=== PATIENT | female | born 1960 | race Caucasian/White ===

== ENCOUNTER 2019-06-19 07:41 | Observation (INO) | payer BC ==
[2019-06-19] VITALS (9 sets, daily range): BP systolic 111–135; BP diastolic 41–70
[~2019-06-19] VITALS: Ht 167.6 cm; Wt 212.0 kg
[~2019-06-19 07:41] MED LIST: BUPIVACAINE-EPI 0.25%-1:200000 MPF 30 ML VIAL. INJ ONE; CLINDAMYCIN 900MG PREMIX 50 ML IV PRN; ESTROGENS, CONJ VAGINAL CREAM 30GM TUBE. ONE; HYDROmorphone 2 MG/ML VIAL IV PRN; IV RINGERS,LACTATED 1000ML 1,000 ML IV SCH; LIDOCAINE 1% PF 2 ML VIAL. ID PRN; MORPHINE SULFATE 2 MG/ML VIAL. IV PRN; ONDANSETRON PF 4 MG/2 ML VIAL. IV PRN; PROCHLORPERAZINE 10 MG/2 ML VIAL. IV PRN
[2019-06-19] MEDS ORDERED: POTA10TA6 PO (08:23)
[2019-06-19] MEDS ORDERED: HYDR-2145 PO (08:23)
[2019-06-19] MEDS ORDERED: LEVO137T3 PO (08:23)
[2019-06-19] MEDS ORDERED: TRAM-48 PO (08:23)
[2019-06-19] MEDS ORDERED: MELO15TA6 PO (08:23)
[2019-06-19] MEDS ORDERED: GABA600T7 PO (08:23)
[2019-06-19] MEDS ORDERED: ROPI3TAB PO (08:23)
[2019-06-19] MEDS ORDERED: MIDAZOLAM HCL/PF 2 MG/2 ML VIAL. ONE (09:19)
[2019-06-19] MEDS ORDERED: fentaNYL PF VIAL 250 MCG/5 ML VIAL ONE (09:19)
[2019-06-19] MEDS ORDERED: DEXAMETHASONE SOD PHOS 4 MG/ML VIAL ONE (09:20)
[2019-06-19] MEDS ORDERED: ONDANSETRON PF 4 MG/2 ML VIAL. ONE (09:20)
[2019-06-19] MEDS ORDERED: PROPOFOL 20 ML IV ONE (09:20)
[2019-06-19] MEDS ORDERED: LIDOCAINE 2% PF 5 ML VIAL. ONE (09:20)
[2019-06-19 09:42] LABS: BASO # 0.1 x10^3/uL (0.0-0.2); BASO % 1 % (0-3); EOS % 0 % (0-3); HEMATOCRIT 37.5 % (36.0-47.0); HEMOGLOBIN 12.8 g/dL (12.0-15.5); LYMPH # 1.5 x10^3/uL (1.0-4.8); LYMPH % 13 % (24-48); MEAN CORPUSCULAR HEMOGLOBIN 32 pg (25-35); MEAN CORPUSCULAR HGB CONC 34 g/dL (31-37); MEAN CORPUSCULAR VOLUME 95 fL (79-100); MONO # 0.7 x10^3/uL (0.0-1.1); MONO % 7 % (0-9); NEUT # 8.6 x10^3/uL (1.8-7.7); NEUT % 79 % (31-73); PLATELET COUNT 360 x10^3/uL (140-400); RED BLOOD COUNT 3.95 x10^6/uL (3.50-5.40); RED CELL DISTRIBUTION WIDTH 14.2 % (11.5-14.5); WHITE BLOOD COUNT 10.9 x10^3/uL (4.0-11.0)
[2019-06-19] MEDS ORDERED: 0.9 % SODIUM CHLORIDE 20 ML VIAL. IJ ONE ×2 (10:04)
[2019-06-19] MEDS ORDERED: SEVOFLURANE 61 TO 120 MINUTES. IH ONE (11:13)
[2019-06-19] MEDS ORDERED: fentaNYL PF VIAL 100 MCG/2 ML VIAL ONE ×2 (11:30→12:02)
--- NOTE | 2019-06-19 11:32 | PDOC ---
BRIEF OPERATIVE NOTE Date: Jun 19, 2019 Pre-Op Diagnosis cystocele and rectocele Post-Op Diagnosis same with much larger rectocele Procedure Performed anterior and posterior repairs Surgeon Dr. Sonya Muñoz Anesthesiologist Dr. Salinas Anesthesia Type: General Blood Loss 15cc IV Fluid see anesthesia records Urine Output clear via wolf Specimens Obtained anterior and posterior vaginal mucosa Findings 1-2 cystocele, 2-3 degree rectocele with thinning perineal body Complications none Operative Note [id number] SONYA MUÑOZ MD Jun 19, 2019 11:32
[2019-06-19] MEDS: fentaNYL PF VIAL 100 MCG/2 ML VIAL IV PRN ×4 (11:40→12:06)
[2019-06-19] MEDS ORDERED: diphenhydrAMINE HCL 25 MG CAPSULE PO PRN ×2 (11:45)
[2019-06-19] MEDS ORDERED: ZOLPIDEM 5 MG TABLET. PO PRN (11:45)
[2019-06-19] MEDS ORDERED: MAG HYDROX/ALUMINUM HYD/SIMETH 30 ML ORAL.SUSP PO PRN ×2 (11:45)
[2019-06-19] MEDS ORDERED: LACTULOSE 20 GM/30 ML SOLUTION. PO PRN (11:45)
[2019-06-19] MEDS ORDERED: MAGNESIUM HYDROXIDE 2,400 MG/30 ML ORAL.SUSP. PO PRN (11:45)
[2019-06-19] MEDS ORDERED: 0.9 % SODIUM CHLORIDE 10 ML DISP.SYRIN. IV PRN ×2 (11:45)
[2019-06-19] MEDS ORDERED: HYDROcodone/APAP 5/325MG 1 TAB TABLET PO PRN ×2 (11:45)
[2019-06-19] MEDS ORDERED: SIMETHICONE 80 MG TAB.CHEW PO PRN ×2 (11:45)
[2019-06-19] MEDS ORDERED: CALCIUM CARBONATE 500 MG TAB.CHEW PO PRN ×2 (11:45)
[2019-06-19] MEDS ORDERED: NALOXONE 0.4 MG/ML VIAL. IV PRN ×2 (11:45)
[2019-06-19] MEDS ORDERED: diphenhydrAMINE 50 MG/ML VIAL IV PRN ×2 (11:45)
--- NOTE | 2019-06-19 12:01 | OP ---
DATE OF SURGERY: 06/19/2019 PREOPERATIVE DIAGNOSES: Symptomatic cystocele and rectocele. She had a second degree cystocele with a second and third degree rectocele present with thinning vaginal mucosa. PROCEDURE: Anterior and posterior colporrhaphy with perineoplasty. SURGEON: Drake Muñoz MD DIE DRAWING CHECKER: OR personnel. ANESTHESIOLOGIST: Dr. Salinas. ANESTHESIA: General. BLOOD LOSS: 15 mL. URINE OUTPUT: Clear via Hathaway catheter. SPECIMEN REMOVED: I am not even honestly sure they sent it. There was anterior and posterior vaginal mucosa tiny bit that was trimmed. COMPLICATIONS: None. DESCRIPTION OF PROCEDURE: This patient was taken to the operating room where general anesthesia was placed. The patient was placed in dorsal lithotomy position in [facility]. The patient's vagina was prepped and draped in the normal sterile fashion and a Hathaway catheter had been inserted under sterile technique. Upon my arrival, a timeout was performed. Once everyone agreed, a weighted speculum was placed in the patient's vagina and 2 long Allises were placed at the vaginal cuff. A solution of 3 parts injectable saline to 1 part 25% Marcaine with epinephrine was used to inject 20 mL anteriorly and I believe 30 mL posteriorly. There was 80 mL dilute solution used and that was posteriorly and on the perineal body on that, I believe with 3 parts injectable saline to 1 part local and 20 with anterior. A small #15 blade knife was used to make a small vertical incision there. Allis clamps were placed on either side and then the Metzenbaum scissors were used to open it up to approximately 1 cm below the urethra. It was a smaller defect, it was opened up, 3 or 4 interrupted 2-0 Vicryl sutures were placed and then tied to reduce it and very minimal tissue was trimmed, but it was closed in a running locked fashion from top to bottom. Then, the posterior repair, the weighted speculum was removed. Kochers were placed at 4 o' clock and 7 o'clock, more of that dilute solution of 3 parts injectable saline to 1 part local was injected in the posterior defect in the perineal body. A knife was used to cut a michele shaped wedge out of the perineal body and inside the vaginal introitus just inside the opening. It was cut off and then Metzenbaum scissors were used to open up this defect as well. It was much larger. The Metzenbaum scissors were used to sharply dissect the vaginal mucosa away from the defect and an open Ray-Jer 4 x 4 was used to gently push it up and out of the way. This was done anteriorly as well. Then, 2-0 Vicryl sutures were placed, then the excess mucosa was trimmed and it was closed. Allis clamps were placed along the way and starting on the patient's right side sharply and bluntly dissecting the vaginal mucosa away from the posterior defect. This was done on the left side as well. Once it was reduced significantly, 6 or 8 interrupted 2-0 Vicryl sutures were placed and tagged and went back and tied them in order and then using the back end of pickups to bluntly just push down the defect and bring it together. Excess mucosa was trimmed on both sides posteriorly and it was also closed and reduced. Once this was done, it came down to the vaginal introitus opening. It was kind of tucked under. The perineal body was reapproximated and then it was subacute on the perineal body and taken back into the vagina to close much like an episiotomy repair. At the end, it was all examined. All the incision sites were hemostatic and dry. Premarin cream was placed over the suture lines above and below and the procedure was ended. The Hathaway was removed. She was cleaned up. She was awakened from anesthesia and brought to recovery room in stable condition. DRAKE MUÑOZ MD DR: CARLOZ/sarwat JOB#: [id number] / [id number]
--- NOTE | 2019-06-19 12:50 | NUR ---
Rec'd from PACU per bed, alert/oriented, states discomfort level 5/10, IVF infusing into left dorsal hand, bilateral SCD in place for DVT prevention, oriented to surroundings, family members at bedside, see admission, call light within reach, bed rails up x 2
[2019-06-19] MEDS ORDERED: GABAPENTIN 300 MG CAPSULE. PO SCH (14:00)
--- NOTE | 2019-06-19 17:07 | NUR ---
Discharged to home per w/c accompanied by spouse, discharge instructions given to pt/spouse with follow up to MD as scheduled, see instruction for details
[2019-06-20] MEDS ORDERED: LEVOTHYROXINE 137 MCG TABLET PO SCH (06:00)
[2019-06-20] MEDS ORDERED: POTASSIUM CHLORIDE 10 MEQ TABLET.ER. PO SCH (08:00)
[2019-06-20] MEDS ORDERED: hydroCHLOROthiazide 25 MG TABLET PO SCH (09:00)
[2019-07-03] MEDS ORDERED: APIX5TAB PO (13:33)
[2019-07-03] MEDS ORDERED: HYDR-3164 PO (13:33)
== END 2019-06-19 17:09 | disposition home or self-care (01) ==
LOC: SURG 07:41 → 3 NORTH 11:45
PROVIDERS: ADMIT Obstetrics & Gynecology; ATTEND Obstetrics & Gynecology
DX: N81.10 Cystocele, unspecified (principal); N81.6 Rectocele; N95.2 Postmenopausal atrophic vaginitis
CPT/HCPCS: 36415; 56810; 57260; 85025; 86850; 86900; 86901; A7015; G0378; G0379; J1100; J1956; J2001; J2250; J2405; J2704; J3010; J3490; J7120

== ENCOUNTER 2019-07-01 12:46 | Inpatient (IN) | payer BC ==
[~2019-07-01] VITALS: Ht 167.6 cm; Wt 96.4 kg
[~2019-07-01 12:46] MED LIST changes: -APIX5TAB PO; -HYDR-3164 PO; -NITR100C62 PO; -ROPI0.25 PO
[2019-07-01 13:35] VITALS: BP 146/69
[2019-07-01] MEDS ORDERED: HYDR-3164 PO (14:07)
[2019-07-01] MEDS ORDERED: ROPI0.25 PO (14:07)
[2019-07-01] MEDS ORDERED: NITR100C62 PO (14:07)
--- NOTE | 2019-07-01 14:28 | PDOC1 ---
History and Physical Date of Admission Date of Admission DATE: 07/01/19 TIME: 14:24 Identification/Chief Complaint Chief Complaint Right leg swelling Source Source: Patient History of Present Illness History of Present Illness Ms Berger is a 59yo F w/ PMHx Lupus, RA, HTN who just underwent an anterior and posterior colporrhaphy with perineoplasty on 06/23/2019 that went well and she has been recovering at home when she noted RLE edema and had a doppler ordered by llama farmer, she was found with occlusive thrombosis within the distal superficial femoral vein and popliteal vein and posterior tibial and peroneal veins. Due to her pain and difficulty ambulating and large clot burden she is being admitted for further care. She just received her humira 2 days ago, feeling like she is not in an RA or Lupus flare currently. No family history of clots. No prior DVT or PE in any of her prior 8 surgeries. She does not know if she has been tested for lupus anticoagulant. Past Medical History Cardiovascular: HTN Pulmonary: No pertinent hx GI: No pertinent hx Heme/Onc: No pertinent hx Hepatobiliary: No pertinent hx Psych: No pertinent hx Rheumatologic: Rheumatoid arthritis, Other (LUPUS) ENT: No pertinent hx Renal/: No pertinent hx Endocrine: No pertinent hx Dermatology: No pertinent hx Past Surgical History Past Surgical History: Hernia Repair (x7), Hysterectomy, Other (Coloporrhaphy) Family History Family History: Hypertension Social History Smoke: No ALCOHOL: none Drugs: None Current Medications Current Medications Active Scripts Active Reported Macrobid 100 Mg Capsule (Nitrofurantoin Monohyd/M-Cryst) 100 Mg Capsule 1 Cap PO BID 7 Days [place] 5-325 Tablet (Acetaminophen/Hydrocodone Bitart) 1 Each Tablet 1 Tab PO PRN Q6HRS PRN Requip (Ropinirole Hcl) 0.25 Mg Tablet 1 Mg PO HS 1 Days Levothyroxine Sodium 137 Mcg Tablet 1 Tab PO DAILY Mobic (Meloxicam) 15 Mg Tablet 1 Tab PO DAILY Klor-Con 10 (Potassium Chloride) 10 Meq Tablet.er 10 Meq PO DAILY Ultram (Tramadol Hcl) 50 Mg Tablet 50 Mg PO Q4HRS PRN Hydrochlorothiazide Tablet (Hydrochlorothiazide) 25 Mg Tablet 25 Mg PO DAILY Gabapentin 600 Mg Tablet 600 Mg PO TID Allergies Allergies: Coded Allergies: Penicillins (Verified Allergy, Intermediate, 06/19/19) Sulfa (Sulfonamide Antibiotics) (Verified Allergy, Intermediate, 06/19/19) codeine (Verified Allergy, Intermediate, 06/19/19) ROS General: No: Chills, Night Sweats, Fatigue, Malaise, Appetite, Other PSYCHOLOGICAL ROS: No: Anxiety, Behavioral Disorder, Concentration difficultie, Decreased libido, Depression, Disorientation, Hallucinations, Hostility, Irritablity, Memory difficulties, Mood Swings, Obsessive thoughts, Physical abuse, Sexual abuse, Sleep disturbances, Suicidal ideation, Other Eyes: No Blurry vision, No Decreased vision, No Double vision, No Dry eyes, No Excessive tearing, No Eye Pain, No Itchy Eyes, No Loss of vision, No Photophobia, No Scotomata, No Uses contacts, No Uses glasses, No Other HEENT: No: Heacaches, Visual Changes, Hearing change, Nasal congestion, Nasal discharge, Oral lesions, Sinus pain, Sore Throat, Epistaxis, Sneezing, Snoring, Tinnitus, Vertigo, Vocal changes, Other ALLERGY AND IMMUNOLOGY: No: Hives, Insect Bite Sensitivity, Itchy/Watery Eyes, Nasal Congestion, Post Nasal Drip, Seasonal Allergies, Other Hematological and Lymphatic: No: Bleeding Problems, Blood Clots, Blood Transfusions, Brusing, Night Sweats, Pallor, Swollen Lymph Nodes, Other ENDOCRINE: No: Breast Changes, Galactorrhea, Hair Pattern Changes, Hot Flashes, Malaise/lethargy, Mood Swings, Palpitations, Polydipsia/polyuria, Skin Changes, Temperature Intolerance, Unexpected Weight Changes, Other Breast: No New/Changing Breast Lumps, No Nipple changes, No Nipple discharge, No Other Respiratory: No: Cough, Hemoptysis, Orthopnea, Pleuritic Pain, Shortness of breath, SOB with excertion, Sputum Changes, Stridor, Tachypnea, Wheezing, Other Cardiovascular: No Chest Pain, No Palpitations, No Orthopnea, No Paroxysmal Noc. Dyspnea, No Edema, No Lt Headedness, No Other Gastrointestinal: No Nausea, No Vomiting, No Abdominal Pain, No Diarrhea, No Constipation, No Melena, No Hematochezia, No Other Genitourinary: No Dysuria, No Frequency, No Incontinence, No Hematuria, No Retention, No Discharge, No Urgency, No Pain, No Flank Pain, No Other, No , No , No , No , No , No , No Musculoskeletal: Yes Muscle Pain; No Gait Disturbance, No Joint Pain, No Joint Stiffness, No Joint Swelling, No Muscular Weakness, No Pain In:, No Swelling In:, No Other Neurological: No Behavorial Changes, No Bowel/Bladder ControlChng, No Confusion, No Dizziness, No Gait Disturbance, No Headaches, No Impaired Coord/balance, No Memory Loss, No Numbness/Tingling, No Seizures, No Speech Problems, No Tremors, No Visual Changes, No Weakness, No Other Skin: No Dry Skin, No Eczema, No Hair Changes, No Lumps, No Mole Changes, No Mottling, No Nail Changes, No Pruritus, No Rash, No Skin Lesion Changes, No Other, No Acne Physical Exam General: Alert, Oriented X3, Cooperative, No acute distress HEENT: Atraumatic, PERRLA, EOMI, Mucous membr. moist/pink, Other (Glasses in place) Lungs: Clear to auscultation, Normal air movement Heart: S1S2, RRR, no gallops, no murmurs Abdomen: Normal bowel sounds, Soft, No tenderness, No hepatosplenomegaly, No masses Rectal Exam: not examined Extremities: No clubbing, No cyanosis, Normal pulses, Other (Right calf edema and swelling) Skin: No rashes, No breakdown, No significant lesion Neuro: Normal gait, Normal speech, Strength at 5/5 X4 ext, Normal tone, Sensation intact, Cranial nerves 3-12 NL, Reflexes 2+ Psych/Mental Status: Mental status NL, Mood NL Vitals Vitals Vital Signs Date Time Temp Pulse Resp B/P (MAP) Pulse Ox O2 Delivery O2 Flow Rate FiO2 07/01/19 13:35 98.4 106 16 146/69 (94) 96 Room Air 98.4 Images Images RLE Venous doppler - Duplex sonography (including queen scale evaluation and color flow and waveform spectral analysis) of the proximal aspect of the greater saphenous vein and proximal aspect of the profunda femoral vein and the entire length of the common femoral and superficial femoral and popliteal veins and the tibioperoneal trunk and the proximal aspect of the posterior tibial and peroneal veins of the right leg was performed. Occlusive thrombosis is seen within the distal superficial femoral vein and popliteal vein and posterior tibial and peroneal veins. Impression: Occlusive DVT of the right lower extremity. VTE Prophylaxis Ordered VTE Prophylaxis Devices: Yes VTE Pharmacological Prophylaxi: Yes Assessment/Plan Assessment/Plan A/P: Intractable right leg pain - not responsive to oral pain medications, having difficulty ambulating Acute RLE DVT - high risk with RA and Lupus, will place on Eliquis 10mg BID for 7 days, then 5mg BID thereafter. Check lupus anticoagulant as well. Will have d dimer in 3 months to reassess Lupus - not on plaquenil anymore. Was on MTX, no longer on this as well. Has prednisone at home if she has a flare. No hx of nephritis RA - on twice monthly humira, last dosing was 2 days ago. Feeling well, no recent sick contacts HTN - on HCTZ, will continue S/p anterior and posterior colporrhaphy with perineoplasty on 06/23/2019 - recovered well, no problems with her bowels. FEN - General diet PPX - eliquis FULL CODE Dispo - inpatient for pain management with acute DVT in moderate-high risk patient. Possibly home in next day or 2 if her pain is managed better JAMARI CARLOS MD Jul 01, 2019 14:28
[2019-07-01] MEDS ORDERED: DOCUSATE SODIUM 100 MG CAPSULE. PO PRN (14:30)
[2019-07-01] MEDS ORDERED: ONDANSETRON PF 4 MG/2 ML VIAL. IV PRN (14:30)
[2019-07-01 15:00] VITALS: BP 140/62
[2019-07-01] MEDS: APIXABAN 5 MG TABLET. PO SCH ×2 (15:19→22:04)
[2019-07-01] MEDS: HYDROcodone/APAP 5/325MG 1 TAB TABLET PO PRN (15:25)
[2019-07-01 16:27] LABS: BASO # 0.1 x10^3/uL (0.0-0.2); BASO % 1 % (0-3); EOS # 0.3 x10^3/uL (0.0-0.7); EOS % 2 % (0-3); HEMATOCRIT 35.4 % (36.0-47.0); HEMOGLOBIN 11.6 g/dL (12.0-15.5); LYMPH # 1.8 x10^3/uL (1.0-4.8); LYMPH % 15 % (24-48); MEAN CORPUSCULAR HEMOGLOBIN 31 pg (25-35); MEAN CORPUSCULAR HGB CONC 33 g/dL (31-37); MEAN CORPUSCULAR VOLUME 96 fL (79-100); MONO # 0.7 x10^3/uL (0.0-1.1); MONO % 6 % (0-9); NEUT % 75 % (31-73); PLATELET COUNT 391 x10^3/uL (140-400); RED BLOOD COUNT 3.71 x10^6/uL (3.50-5.40); RED CELL DISTRIBUTION WIDTH 13.9 % (11.5-14.5)
[2019-07-01 16:33] LABS: CALCIUM 8.9 mg/dL (8.5-10.1); CREATININE 0.8 mg/dL (0.6-1.0); GFR 73.7; POTASSIUM 3.6 mmol/L (3.5-5.1)
[2019-07-01 19:00] VITALS: BP 117/58
[2019-07-01] MEDS: traMADol 50 MG TABLET PO PRN (19:47)
[2019-07-01] MEDS: GABAPENTIN 300 MG CAPSULE. PO SCH (22:04)
[2019-07-01] MEDS: rOPINIRole 0.25 MG TABLET. PO SCH (22:04)
[2019-07-01] MEDS: ACETAMINOPHEN 325 MG TABLET. PO PRN (22:04)
[2019-07-01 23:00] VITALS: BP 140/58
[2019-07-01] MEDS: ZOLPIDEM 5 MG TABLET. PO PRN (23:34)
--- NOTE | 2019-07-01 23:50 | NUR ---
acetaminophen, ropinirole, gabapentin, and apixaban were all given to the patient at 2204 during [employer] downtime.
[2019-07-02 03:00] VITALS: BP 115/60
[2019-07-02 07:00] VITALS: BP 128/69
[2019-07-02] MEDS: LEVOTHYROXINE 137 MCG TABLET PO SCH (08:06)
[2019-07-02] MEDS: HYDROcodone/APAP 5/325MG 1 TAB TABLET PO PRN ×3 (08:06→21:11)
--- NOTE | 2019-07-02 08:46 | PDOC ---
PROGRESS NOTES Chief Complaint Chief Complaint A/P: Intractable right leg pain - not responsive to oral pain medications, having difficulty ambulating Acute RLE DVT - high risk with RA and Lupus, will place on Eliquis 10mg BID for 7 days, then 5mg BID thereafter. Check lupus anticoagulant as well. Will have d dimer in 3 months to reassess Lupus - not on plaquenil anymore. Was on MTX, no longer on this as well. Has prednisone at home if she has a flare. No hx of nephritis RA - on twice monthly humira, last dosing was 2 days ago. Feeling well, no recent sick contacts HTN - on HCTZ, will continue S/p anterior and posterior colporrhaphy with perineoplasty on 06/23/2019 - recovered well, no problems with her bowels. FEN - General diet PPX - eliquis FULL CODE Dispo - inpatient for pain management with acute DVT in moderate-high risk patient. Possibly home in next day or 2 if her pain is managed better History of Present Illness History of Present Illness Ms Berger is a 59yo F w/ PMHx Lupus, RA, HTN who just underwent an anterior and posterior colporrhaphy with perineoplasty on 06/23/2019 that went well and she has been recovering at home when she noted RLE edema and had a doppler ordered by scientific technical writer, she was found with occlusive thrombosis within the distal superficial femoral vein and popliteal vein and posterior tibial and peroneal veins. Due to her pain and difficulty ambulating and large clot burden she is being admitted for further care. She just received her humira 06/29, feeling like she is not in an RA or Lupus flare currently. No family history of clots. No prior DVT or PE in any of her prior 8 surgeries. She does not know if she has been tested for lupus anticoagulant. Pain is still not well controlled, requiring IV meds, she has extreme pain even with toe touch. Has had warm compress and leg elevated for 12 hours. No CP or SOB. Plan: Will consult vascular surgery for advice on how to better manage pain with this blood clot Vitals Vitals Vital Signs Date Time Temp Pulse Resp B/P (MAP) Pulse Ox O2 Delivery O2 Flow Rate FiO2 07/02/19 08:06 18 95 Room Air 07/02/19 03:00 97.9 95 115/60 (78) 97.9 Physical Exam General: Alert, Oriented X3, Cooperative, No acute distress Abdomen: Normal bowel sounds, Soft, No tenderness, No hepatosplenomegaly, No masses Extremities: No clubbing, No cyanosis, Normal pulses, Other (Right calf edema and swelling) Skin: No rashes, No breakdown, No significant lesion Labs LABS Laboratory Tests Test 07/01/19 16:15 White Blood Count 12.0 x10^3/uL (4.0-11.0) Red Blood Count 3.71 x10^6/uL (3.50-5.40) Hemoglobin 11.6 g/dL (12.0-15.5) Hematocrit 35.4 % (36.0-47.0) Mean Corpuscular Volume 96 fL (79-100) Mean Corpuscular Hemoglobin 31 pg (25-35) Mean Corpuscular Hemoglobin Concent 33 g/dL (31-37) Red Cell Distribution Width 13.9 % (11.5-14.5) Platelet Count 391 x10^3/uL (140-400) Neutrophils (%) (Auto) 75 % (31-73) Lymphocytes (%) (Auto) 15 % (24-48) Monocytes (%) (Auto) 6 % (0-9) Eosinophils (%) (Auto) 2 % (0-3) Basophils (%) (Auto) 1 % (0-3) Neutrophils # (Auto) 9.0 x10^3/uL (1.8-7.7) Lymphocytes # (Auto) 1.8 x10^3/uL (1.0-4.8) Monocytes # (Auto) 0.7 x10^3/uL (0.0-1.1) Eosinophils # (Auto) 0.3 x10^3/uL (0.0-0.7) Basophils # (Auto) 0.1 x10^3/uL (0.0-0.2) Sodium Level 140 mmol/L (136-145) Potassium Level 3.6 mmol/L (3.5-5.1) Chloride Level 105 mmol/L (98-107) Carbon Dioxide Level 24 mmol/L (21-32) Anion Gap 11 (6-14) Blood Urea Nitrogen 7 mg/dL (7-20) Creatinine 0.8 mg/dL (0.6-1.0) Estimated GFR (Cockcroft-Gault) 73.7 Glucose Level 118 mg/dL (70-99) Calcium Level 8.9 mg/dL (8.5-10.1) Comment Review of Relevant I have reviewed the following items annamarie (where applicable) has been applied. Labs Laboratory Tests Test 07/01/19 16:15 White Blood Count 12.0 x10^3/uL (4.0-11.0) Red Blood Count 3.71 x10^6/uL (3.50-5.40) Hemoglobin 11.6 g/dL (12.0-15.5) Hematocrit 35.4 % (36.0-47.0) Mean Corpuscular Volume 96 fL (79-100) Mean Corpuscular Hemoglobin 31 pg (25-35) Mean Corpuscular Hemoglobin Concent 33 g/dL (31-37) Red Cell Distribution Width 13.9 % (11.5-14.5) Platelet Count 391 x10^3/uL (140-400) Neutrophils (%) (Auto) 75 % (31-73) Lymphocytes (%) (Auto) 15 % (24-48) Monocytes (%) (Auto) 6 % (0-9) Eosinophils (%) (Auto) 2 % (0-3) Basophils (%) (Auto) 1 % (0-3) Neutrophils # (Auto) 9.0 x10^3/uL (1.8-7.7) Lymphocytes # (Auto) 1.8 x10^3/uL (1.0-4.8) Monocytes # (Auto) 0.7 x10^3/uL (0.0-1.1) Eosinophils # (Auto) 0.3 x10^3/uL (0.0-0.7) Basophils # (Auto) 0.1 x10^3/uL (0.0-0.2) Sodium Level 140 mmol/L (136-145) Potassium Level 3.6 mmol/L (3.5-5.1) Chloride Level 105 mmol/L (98-107) Carbon Dioxide Level 24 mmol/L (21-32) Anion Gap 11 (6-14) Blood Urea Nitrogen 7 mg/dL (7-20) Creatinine 0.8 mg/dL (0.6-1.0) Estimated GFR (Cockcroft-Gault) 73.7 Glucose Level 118 mg/dL (70-99) Calcium Level 8.9 mg/dL (8.5-10.1) Laboratory Tests Test 07/01/19 16:15 White Blood Count 12.0 x10^3/uL (4.0-11.0) Red Blood Count 3.71 x10^6/uL (3.50-5.40) Hemoglobin 11.6 g/dL (12.0-15.5) Hematocrit 35.4 % (36.0-47.0) Mean Corpuscular Volume 96 fL (79-100) Mean Corpuscular Hemoglobin 31 pg (25-35) Mean Corpuscular Hemoglobin Concent 33 g/dL (31-37) Red Cell Distribution Width 13.9 % (11.5-14.5) Platelet Count 391 x10^3/uL (140-400) Neutrophils (%) (Auto) 75 % (31-73) Lymphocytes (%) (Auto) 15 % (24-48) Monocytes (%) (Auto) 6 % (0-9) Eosinophils (%) (Auto) 2 % (0-3) Basophils (%) (Auto) 1 % (0-3) Neutrophils # (Auto) 9.0 x10^3/uL (1.8-7.7) Lymphocytes # (Auto) 1.8 x10^3/uL (1.0-4.8) Monocytes # (Auto) 0.7 x10^3/uL (0.0-1.1) Eosinophils # (Auto) 0.3 x10^3/uL (0.0-0.7) Basophils # (Auto) 0.1 x10^3/uL (0.0-0.2) Sodium Level 140 mmol/L (136-145) Potassium Level 3.6 mmol/L (3.5-5.1) Chloride Level 105 mmol/L (98-107) Carbon Dioxide Level 24 mmol/L (21-32) Anion Gap 11 (6-14) Blood Urea Nitrogen 7 mg/dL (7-20) Creatinine 0.8 mg/dL (0.6-1.0) Estimated GFR (Cockcroft-Gault) 73.7 Glucose Level 118 mg/dL (70-99) Calcium Level 8.9 mg/dL (8.5-10.1) Medications Current Medications Ondansetron HCl (Zofran) 4 mg PRN Q4HRS PRN IV NAUSEA/VOMITING; Start 07/01/19 at 14:30 Zolpidem Tartrate (Ambien) 5 mg PRN QHS PRN PO INSOMNIA Last administered on 07/01/19 23:34; Start 07/01/19 at 14:30 Acetaminophen (Tylenol) 650 mg PRN Q4HRS PRN PO TEMP OVER 100.4F OR MILD PAIN Last administered on 07/01/19 22:04; Start 07/01/19 at 14:30 Docusate Sodium (Colace) 100 mg PRN BID PRN PO CONSTIPATION; Start 07/01/19 at 14:30 Hydrochlorothiazide (Hydrodiuril) 25 mg DAILY PO ; Start 07/02/19 at 09:00 Acetaminophen/ Hydrocodone Bitart ([place] 5/325) 1 tab PRN Q6HRS PRN PO PAIN Last administered on 07/02/19 08:06; Start 07/01/19 at 14:30 Levothyroxine Sodium (Synthroid) 137 mcg DAILY PO Last administered on 07/02/19 08:06; Start 07/02/19 at 09:00 Ropinirole HCl (Requip) 1 mg HS PO Last administered on 07/01/19 22:04; Start 07/01/19 at 21:00 Tramadol HCl (Ultram) 50 mg PRN Q4HRS PRN PO PAIN Last administered on 07/01/19 19:47; Start 07/01/19 at 14:30 Gabapentin (Neurontin) 600 mg TID PO Last administered on 07/01/19 22:04; Start 07/01/19 at 21:00 Apixaban (Eliquis) 10 mg BID PO Last administered on 07/01/19 22:04; Start 1 at 14:30; Stop 07/07/19 at 21:01 Apixaban (Eliquis) 5 mg BID PO ; Start 07/08/19 at 09:00 Active Scripts Active Reported Macrobid 100 Mg Capsule (Nitrofurantoin Monohyd/M-Cryst) 100 Mg Capsule 1 Cap PO BID 7 Days [place] 5-325 Tablet (Acetaminophen/Hydrocodone Bitart) 1 Each Tablet 1 Tab PO PRN Q6HRS PRN Requip (Ropinirole Hcl) 0.25 Mg Tablet 1 Mg PO HS 1 Days Levothyroxine Sodium 137 Mcg Tablet 1 Tab PO DAILY Mobic (Meloxicam) 15 Mg Tablet 1 Tab PO DAILY Klor-Con 10 (Potassium Chloride) 10 Meq Tablet.er 10 Meq PO DAILY Ultram (Tramadol Hcl) 50 Mg Tablet 50 Mg PO Q4HRS PRN Hydrochlorothiazide Tablet (Hydrochlorothiazide) 25 Mg Tablet 25 Mg PO DAILY Gabapentin 600 Mg Tablet 600 Mg PO TID Vitals/I & O Vital Sign - Last 24 Hours 07/01/19 07/01/19 07/01/19 07/01/19 13:35 15:00 15:25 15:56 Temp 98.4 98.1 98.4 98.1 Pulse 106 100 Resp 16 16 B/P (MAP) 146/69 (94) 140/62 (88) Pulse Ox 96 95 O2 Delivery Room Air Room Air Room Air Room Air 07/01/19 07/01/19 07/01/19 07/01/19 16:58 19:00 19:47 20:00 Temp 98.3 98.3 Pulse 94 Resp 18 B/P (MAP) 117/58 (77) Pulse Ox 96 95 O2 Delivery Room Air Room Air Room Air Room Air 07/01/19 07/01/19 07/02/19 07/02/19 20:47 23:00 03:00 08:06 Temp 98.2 97.9 98.2 97.9 Pulse 90 95 Resp 18 18 18 B/P (MAP) 140/58 (85) 115/60 (78) Pulse Ox 95 95 95 95 O2 Delivery Room Air Room Air Room Air Room Air Intake and Output 07/01/19 07/01/19 07/02/19 15:00 23:00 07:00 Intake Total 360 ml Balance 360 ml JAMARI CARLOS MD Jul 02, 2019 08:46
[2019-07-02] MEDS: GABAPENTIN 300 MG CAPSULE. PO SCH ×3 (10:06→21:10)
[2019-07-02] MEDS: APIXABAN 5 MG TABLET. PO SCH ×2 (10:06→21:10)
[2019-07-02] MEDS: hydroCHLOROthiazide 25 MG TABLET PO SCH (10:06)
[2019-07-02 11:00] VITALS: BP 124/68
--- NOTE | 2019-07-02 11:09 | NUR ---
SW following pt for dc planning. Chart reviewed. Pt lives at home with spouse, has PMHx Lupus, RA, HTN and admitted for active DVI right leg. SW will be available as needed.
[2019-07-02] MEDS: ANTI-COAG MONITOR BY PHARMACY. MC PRN (14:21)
--- NOTE | 2019-07-02 14:57 | PDOC ---
Provider Note Provider Note Vascular consult dictated Imp: 1. DVT right distal femoral, popliteal and proximal tibial veins. Provoked. No hx of prior DVT or thrombophilia. No clinical signs or symptoms to suggest PE 2. Hx of RA and lupus 3. s/p pelvic surgery one week ago Rec: 1. pt not a candidate for thrombolysis or IVC filter 2. leg elevation when able, early and frequent ambulation 3. 3-6 mos of anticoagulation with factor 10a inhibitor or warfarin 4. knee-high compression stockings, 20-30 mm Hg 5. f/u in 3 mos with repeat lower extremity venous ultrasound. JABARI ALVARADO II, MD Jul 02, 2019 14:57
[2019-07-02 15:00] VITALS: BP 129/75
[2019-07-02] MEDS: SENNOSIDES/DOCUSATE 8.6/50MG TABLET. PO PRN (17:48)
[2019-07-02] MEDS: traMADol 50 MG TABLET PO PRN (18:01)
[2019-07-02 19:00] VITALS: BP 124/67
--- NOTE | 2019-07-02 19:20 | CONS ---
DATE OF CONSULTATION: 07/02/2019 CLINICAL HISTORY: This is a 59-year-old female who was admitted yesterday with complaints of subacute onset of pain in the right lower extremity. She has undergone recent anterior and posterior colporrhaphy and perineoplasty on 06/23/2019. Approximately 3 days following that procedure, she developed pain in her right lower extremity, which she thought was a Charley cramp. She was evaluated by her TEACHING PASTOR physician and a deep vein thrombosis of the right leg was documented. This involves the distal femoral vein and the popliteal vein as well as tibial veins. She has not noted any particular swelling of the lower extremity; however, the pain is significant. She has a history of rheumatoid arthritis and lupus. She is a nonsmoker. She denies any prior deep vein thrombosis and currently denies any complaints of chest pain, shortness of breath or hemoptysis. She has no known history of a thrombophilia disorder. PAST MEDICAL HISTORY: Rheumatoid arthritis, lupus. PAST SURGICAL HISTORY: Includes hernia repair, hysterectomy and colporrhaphy. FAMILY HISTORY: Significant for hypertension. SOCIAL HISTORY: She is a nonsmoker. CURRENT MEDICATIONS: Macrobid, Requip, levothyroxine, Klor-Con, Ultram, hydrochlorothiazide and gabapentin. ALLERGIES: INCLUDE PENICILLIN, SULFA, CODEINE. REVIEW OF SYSTEMS: A 12-point review of systems is obtained. It is negative other than what was mentioned in the history. Specifically, she has no prior complaints of stroke, amaurosis, TIA, claudication, or abdominal pain. PHYSICAL EXAMINATION: GENERAL: The patient is alert and awake. She is in no significant distress. HEENT: Atraumatic and normocephalic. ABDOMEN: Soft. EXTREMITIES: There is no appreciable swelling of either extremity in the thigh or calf level. The calves were soft; however, it is somewhat tender to squeeze. She has easily palpable pedal pulses. IMPRESSION: 1. Deep vein thrombosis of the right distal femoral and popliteal and proximal tibial veins. This appears to be provoked following pelvic surgery. She has no history of prior thrombophilia disorder and no prior history for deep vein thrombosis. She has no clinical history to suggest pulmonary embolism. 2. History of rheumatoid arthritis and lupus. PLAN: 1. The patient is not a candidate for thrombolysis because of the distal extent of the thrombotic event and the fact that she had major surgery one week ago. 2. She is not a candidate for inferior vena cava filter placement as she has no clinical signs or symptoms to suggest pulmonary embolism. 3. I recommend leg elevation, treatment with Xa inhibitor for 3-6 months, knee-high compression stockings and leg elevation. She should be up and ambulatory as soon as possible. Pain can be controlled with oral narcotics. Thank you for allowing me to evaluate her. JABARI ALVARADO MD DR: LEIGHA/nts JOB#: [id number] / [id number]
[2019-07-02] MEDS: rOPINIRole 0.25 MG TABLET. PO SCH (21:10)
[2019-07-02] MEDS: ZOLPIDEM 5 MG TABLET. PO PRN (21:10)
[2019-07-02 23:00] VITALS: BP 118/46
[2019-07-03 03:00] VITALS: BP 104/60
[2019-07-03] MEDS: HYDROcodone/APAP 5/325MG 1 TAB TABLET PO PRN ×3 (03:56→13:18)
[2019-07-03 07:00] VITALS: BP 141/72
--- NOTE | 2019-07-03 08:23 | PDOC ---
PROGRESS NOTES Chief Complaint Chief Complaint A/P: Intractable right leg pain - not responsive to oral pain medications, having difficulty ambulating Acute RLE DVT - high risk with RA and Lupus, will place on Eliquis 10mg BID for 7 days, then 5mg BID thereafter. Check lupus anticoagulant as well. Will have d dimer in 3 months to reassess Lupus - not on plaquenil anymore. Was on MTX, no longer on this as well. Has prednisone at home if she has a flare. No hx of nephritis RA - on twice monthly humira, last dosing was 2 days ago. Feeling well, no recent sick contacts HTN - on HCTZ, will continue S/p anterior and posterior colporrhaphy with perineoplasty on 06/23/2019 - recovered well, no problems with her bowels. FEN - General diet PPX - eliquis FULL CODE Dispo - inpatient for pain management with acute DVT in moderate-high risk patient. Possibly home in next day or 2 if her pain is managed better History of Present Illness History of Present Illness Ms Berger is a 59yo F w/ PMHx Lupus, RA, HTN who just underwent an anterior and posterior colporrhaphy with perineoplasty on 06/23/2019 that went well and she has been recovering at home when she noted RLE edema and had a doppler ordered by regional vice president life sales, she was found with occlusive thrombosis within the distal superficial femoral vein and popliteal vein and posterior tibial and peroneal veins. Due to her pain and difficulty ambulating and large clot burden she is being admitted for further care. She just received her humira 06/29, feeling like she is not in an RA or Lupus flare currently. No family history of clots. No prior DVT or PE in any of her prior 8 surgeries. She does not know if she has been tested for lupus anticoagulant. Pain is still not well controlled, requiring IV meds, she has extreme pain even with toe touch. Has had warm compress and leg elevated for 12 hours. No CP or SOB. Seen by vascular surgery, no further interventions necessary, worked with PT, her pain improved with ambulation. Plan: D/c on at least 3 months Vitals Vitals Vital Signs Date Time Temp Pulse Resp B/P (MAP) Pulse Ox O2 Delivery O2 Flow Rate FiO2 07/03/19 03:56 95 Room Air 07/03/19 03:00 97.8 88 18 104/60 (75) 97.8 Physical Exam General: Alert, Oriented X3, Cooperative, No acute distress Abdomen: Normal bowel sounds, Soft, No tenderness, No hepatosplenomegaly, No masses Extremities: No clubbing, No cyanosis, Normal pulses, Other (Right calf edema and swelling) Skin: No rashes, No breakdown, No significant lesion Comment Review of Relevant I have reviewed the following items annamarie (where applicable) has been applied. Labs Laboratory Tests Test 07/01/19 16:15 White Blood Count 12.0 x10^3/uL (4.0-11.0) Red Blood Count 3.71 x10^6/uL (3.50-5.40) Hemoglobin 11.6 g/dL (12.0-15.5) Hematocrit 35.4 % (36.0-47.0) Mean Corpuscular Volume 96 fL (79-100) Mean Corpuscular Hemoglobin 31 pg (25-35) Mean Corpuscular Hemoglobin Concent 33 g/dL (31-37) Red Cell Distribution Width 13.9 % (11.5-14.5) Platelet Count 391 x10^3/uL (140-400) Neutrophils (%) (Auto) 75 % (31-73) Lymphocytes (%) (Auto) 15 % (24-48) Monocytes (%) (Auto) 6 % (0-9) Eosinophils (%) (Auto) 2 % (0-3) Basophils (%) (Auto) 1 % (0-3) Neutrophils # (Auto) 9.0 x10^3/uL (1.8-7.7) Lymphocytes # (Auto) 1.8 x10^3/uL (1.0-4.8) Monocytes # (Auto) 0.7 x10^3/uL (0.0-1.1) Eosinophils # (Auto) 0.3 x10^3/uL (0.0-0.7) Basophils # (Auto) 0.1 x10^3/uL (0.0-0.2) Sodium Level 140 mmol/L (136-145) Potassium Level 3.6 mmol/L (3.5-5.1) Chloride Level 105 mmol/L (98-107) Carbon Dioxide Level 24 mmol/L (21-32) Anion Gap 11 (6-14) Blood Urea Nitrogen 7 mg/dL (7-20) Creatinine 0.8 mg/dL (0.6-1.0) Estimated GFR (Cockcroft-Gault) 73.7 Glucose Level 118 mg/dL (70-99) Calcium Level 8.9 mg/dL (8.5-10.1) Medications Current Medications Ondansetron HCl (Zofran) 4 mg PRN Q4HRS PRN IV NAUSEA/VOMITING; Start 07/01/19 at 14:30 Zolpidem Tartrate (Ambien) 5 mg PRN QHS PRN PO INSOMNIA Last administered on 07/02/19 21:10; Start 07/01/19 at 14:30 Acetaminophen (Tylenol) 650 mg PRN Q4HRS PRN PO TEMP OVER 100.4F OR MILD PAIN Last administered on 07/01/19 22:04; Start 07/01/19 at 14:30 Docusate Sodium (Colace) 100 mg PRN BID PRN PO CONSTIPATION (1st Choice) Last administered on 07/02/19 21:15; Start 07/01/19 at 14:30 Hydrochlorothiazide (Hydrodiuril) 25 mg DAILY PO Last administered on 07/02/19 10:06; Start 07/02/19 at 09:00 Acetaminophen/ Hydrocodone Bitart (Lortab 5/325) 1 tab PRN Q6HRS PRN PO PAIN Last administered on 07/02/19 14:34; Start 07/01/19 at 14:30; Stop 07/02/19 at 18:00; Status DC Levothyroxine Sodium (Synthroid) 137 mcg DAILY PO Last administered on 07/02/19 08:06; Start 07/02/19 at 09:00 Ropinirole HCl (Requip) 1 mg HS PO Last administered on 07/02/19 21:10; Start 07/01/19 at 21:00 Tramadol HCl (Ultram) 50 mg PRN Q4HRS PRN PO PAIN Last administered on 07/02/19 18:01; Start 07/01/19 at 14:30 Gabapentin (Neurontin) 600 mg TID PO Last administered on 07/02/19 21:10; Start 07/01/19 at 21:00 Apixaban (Eliquis) 10 mg BID PO Last administered on 10/16/19at 21:10; Start 07/01/19 at 14:30; Stop 07/07/19 at 21:01 Apixaban (Eliquis) 5 mg BID PO ; Start 07/08/19 at 09:00 Info (Anti-Coagulation Monitoring By Pharmacy) 1 each PRN DAILY PRN MC SEE COMMENTS Last administered on 07/02/19 14:21; Start 07/02/19 at 11:30 Senna/Docusate Sodium (Senna Plus) 2 tab PRN BID PRN PO CONSTIPATION (2nd Choice) Last administered on 07/02/19at 17:48; Start 07/02/19 at 14:45 Acetaminophen/ Hydrocodone Bitart (Lortab 5/325) 1 tab PRN Q4HRS PRN PO PAIN Last administered on 07/03/19 03:56; Start 07/02/19 at 18:00 Active Scripts Active Reported Macrobid 100 Mg Capsule (Nitrofurantoin Monohyd/M-Cryst) 100 Mg Capsule 1 Cap PO BID 7 Days [place] 5-325 Tablet (Acetaminophen/Hydrocodone Bitart) 1 Each Tablet 1 Tab PO PRN Q6HRS PRN Requip (Ropinirole Hcl) 0.25 Mg Tablet 1 Mg PO HS 1 Days Levothyroxine Sodium 137 Mcg Tablet 1 Tab PO DAILY Mobic (Meloxicam) 15 Mg Tablet 1 Tab PO DAILY Klor-Con 10 (Potassium Chloride) 10 Meq Tablet.er 10 Meq PO DAILY Ultram (Tramadol Hcl) 50 Mg Tablet 50 Mg PO Q4HRS PRN Hydrochlorothiazide Tablet (Hydrochlorothiazide) 25 Mg Tablet 25 Mg PO DAILY Gabapentin 600 Mg Tablet 600 Mg PO TID Vitals/I & O Vital Sign - Last 24 Hours 07/02/19 07/02/19 07/02/19 07/02/19 09:06 11:00 14:34 15:00 Temp 98.0 97.8 98.0 97.8 Pulse 90 98 Resp 18 17 18 18 B/P (MAP) 124/68 (86) 129/75 (93) Pulse Ox 95 97 96 O2 Delivery Room Air Room Air Room Air Room Air 07/02/19 07/02/19 07/02/19 07/02/19 15:34 18:01 19:00 19:01 Temp 98.9 98.9 Pulse 95 Resp 18 18 18 18 B/P (MAP) 124/67 (86) Pulse Ox 96 95 O2 Delivery Room Air Room Air Room Air Room Air 07/02/19 07/02/19 07/02/19 07/03/19 20:00 21:11 23:00 03:00 Temp 98.3 97.8 98.3 97.8 Pulse 98 88 Resp 18 18 B/P (MAP) 118/46 (70) 104/60 (75) Pulse Ox 95 95 96 O2 Delivery Room Air Room Air Room Air Room Air 07/03/19 03:56 Pulse Ox 95 O2 Delivery Room Air Intake and Output 07/02/19 07/02/19 07/03/19 14:59 22:59 06:59 Intake Total 600 ml 350 ml 0 ml Balance 600 ml 350 ml 0 ml JAMARI CARLOS MD Jul 03, 2019 08:23
[2019-07-03] MEDS: hydroCHLOROthiazide 25 MG TABLET PO SCH (08:49)
[2019-07-03] MEDS: APIXABAN 5 MG TABLET. PO SCH (08:49)
[2019-07-03] MEDS: SENNOSIDES/DOCUSATE 8.6/50MG TABLET. PO PRN (08:50)
[2019-07-03] MEDS: LEVOTHYROXINE 137 MCG TABLET PO SCH (08:51)
[2019-07-03] MEDS: GABAPENTIN 300 MG CAPSULE. PO SCH ×2 (08:51→14:21)
[2019-07-03] MEDS: ANTI-COAG MONITOR BY PHARMACY. MC PRN (10:01)
[2019-07-03 11:00] VITALS: BP 137/71
[2019-07-03] MEDS ORDERED: APIX5TAB PO (13:33)
[2019-07-03] MEDS ORDERED: HYDR-3164 PO (13:33)
--- NOTE | 2019-07-03 13:39 | PDOC3 ---
Discharge Summary Visit Information Date of Admission: Jul 01, 2019 Date of Discharge: Jul 03, 2019 Admitting Diagnosis: RLE DVT Final Diagnosis RLE DVT Brief Hospital Course Allergies Allergies Coded Allergies Type Severity Reaction Last Updated Verified Penicillins Allergy Intermediate 06/19/19 Yes Sulfa (Sulfonamide Antibiotics) Allergy Intermediate 06/19/19 Yes codeine Allergy Intermediate 06/19/19 Yes Vital Signs Vital Signs Date Time Temp Pulse Resp B/P (MAP) Pulse Ox O2 Delivery O2 Flow Rate FiO2 07/03/19 13:18 Room Air 07/03/19 11:00 99.0 89 16 137/71 (93) 94 99.0 Lab Results Laboratory Tests Test 07/01/19 16:15 White Blood Count 12.0 x10^3/uL (4.0-11.0) Red Blood Count 3.71 x10^6/uL (3.50-5.40) Hemoglobin 11.6 g/dL (12.0-15.5) Hematocrit 35.4 % (36.0-47.0) Mean Corpuscular Volume 96 fL (79-100) Mean Corpuscular Hemoglobin 31 pg (25-35) Mean Corpuscular Hemoglobin Concent 33 g/dL (31-37) Red Cell Distribution Width 13.9 % (11.5-14.5) Platelet Count 391 x10^3/uL (140-400) Neutrophils (%) (Auto) 75 % (31-73) Lymphocytes (%) (Auto) 15 % (24-48) Monocytes (%) (Auto) 6 % (0-9) Eosinophils (%) (Auto) 2 % (0-3) Basophils (%) (Auto) 1 % (0-3) Neutrophils # (Auto) 9.0 x10^3/uL (1.8-7.7) Lymphocytes # (Auto) 1.8 x10^3/uL (1.0-4.8) Monocytes # (Auto) 0.7 x10^3/uL (0.0-1.1) Eosinophils # (Auto) 0.3 x10^3/uL (0.0-0.7) Basophils # (Auto) 0.1 x10^3/uL (0.0-0.2) Sodium Level 140 mmol/L (136-145) Potassium Level 3.6 mmol/L (3.5-5.1) Chloride Level 105 mmol/L (98-107) Carbon Dioxide Level 24 mmol/L (21-32) Anion Gap 11 (6-14) Blood Urea Nitrogen 7 mg/dL (7-20) Creatinine 0.8 mg/dL (0.6-1.0) Estimated GFR (Cockcroft-Gault) 73.7 Glucose Level 118 mg/dL (70-99) Calcium Level 8.9 mg/dL (8.5-10.1) Brief Hospital Course Ms Berger is a 59yo F w/ PMHx Lupus, RA, HTN who just underwent an anterior and posterior colporrhaphy with perineoplasty on 06/23/2019 that went well and she has been recovering at home when she noted RLE edema and had a doppler ordered by bike technician, she was found with occlusive thrombosis within the distal superficial femoral vein and popliteal vein and posterior tibial and peroneal veins. Due to her pain and difficulty ambulating and large clot burden she is being admitted for further care. She just received her humira 06/29, feeling like she is not in an RA or Lupus flare currently. No family history of clots. No prior DVT or PE in any of her prior 8 surgeries. She does not know if she has been tested for lupus anticoagulant. Pain is still not well controlled, requiring IV meds, she has extreme pain even with toe touch. Has had warm compress and leg elevated for 12 hours. No CP or SOB. Seen by vascular surgery, no further interventions necessary, worked with PT, her pain improved with ambulation. Problem list: Intractable right leg pain - not responsive to oral pain medications, having difficulty ambulating Acute RLE DVT - high risk with RA and Lupus, will place on Eliquis 10mg BID for 7 days, then 5mg BID thereafter. Check lupus anticoagulant as well. Will have d dimer in 3 months to reassess Lupus - not on plaquenil anymore. Was on MTX, no longer on this as well. Has prednisone at home if she has a flare. No hx of nephritis RA - on twice monthly humira, last dosing was 2 days ago. Feeling well, no recent sick contacts HTN - on HCTZ, will continue S/p anterior and posterior colporrhaphy with perineoplasty on 06/23/2019 - recovered well, no problems with her bowels. Plan: D/c on at least 3 months eliquis Compression hose Greater than 30 minutes spent on d/c Discharge Information Condition at Discharge: Improved Follow Up: Weeks (2) Disposition/Orders: D/C to Home Scheduled Apixaban (Eliquis) 5 Mg Tablet, 5 MG PO BID for Right leg DVT for 30 Days, #70 Ref 2 5 days of 10mg BID, then 5mg BID and for refills disp #60 Prescribed by: JAMARI CARLOS MD on 07/03/191332 Gabapentin (Gabapentin) 600 Mg Tablet, 600 MG PO TID for NEUROGENIC PAIN, (Reported) Entered as Reported by: NESTOR RAMAN on 06/19/19822 Last Action: Converted on 07/01/191424 by JAMARI CARLOS MD Hydrochlorothiazide (Hydrochlorothiazide Tablet ) 25 Mg Tablet, 25 MG PO DAILY for DIURETIC, Ref 0 (Reported) Entered as Reported by: NESTOR RAMAN on 06/19/19822 Last Action: Continued on 07/01/191424 by JAMARI CARLOS MD Levothyroxine Sodium (Levothyroxine Sodium) 137 Mcg Tablet, 1 TAB PO DAILY for HYDPOTHYROIDISM, #30 Ref 5 (Reported) Entered as Reported by: NESTOR RAMAN on 06/19/19822 Last Action: Continued on 07/01/191424 by JAMARI CARLOS MD Meloxicam (Mobic) 15 Mg Tablet, 1 TAB PO DAILY for PAIN, #30 Ref 1 (Reported) Entered as Reported by: NESTOR RAMAN on 06/19/19822 Last Action: Reviewed on 07/01/191406 by HOWIE MCGRATH Potassium Chloride (Klor-Con 10) 10 Meq Tablet.er, 10 MEQ PO DAILY for SUPPLEMENT, (Reported) Entered as Reported by: NESTOR RAMAN on 06/19/19822 Last Action: Reviewed on 07/01/191406 by HOWIE MCGRATH Ropinirole Hcl (Requip) 0.25 Mg Tablet, 1 MG PO HS for restless leg syndrome for 1 Days, #4 (Reported) Entered as Reported by: HOWIE MCGRATH on 07/01/191406 Last Action: Continued on 07/01/191424 by JAMARI CARLOS MD Scheduled PRN Hydrocodone/Apap 5-325 ([place] 5-325 Tablet) 1 Each Tablet, 1 TAB PO PRN Q6HRS PRN for PAIN for 6 Days, #18 Ref 0 Prescribed by: JAMARI CARLOS MD on 07/03/194 Tramadol Hcl (Ultram) 50 Mg Tablet, 50 MG PO Q4HRS PRN for PAIN, Ref 0 (Reported) Entered as Reported by: NESTOR RAMAN on 06/19/19822 Last Action: Continued on 07/01/191424 by JAMARI CARLOS MD Discontinued Medications Nitrofurantoin Monohyd/M-Cryst (Macrobid 100 Mg Capsule) 100 Mg Capsule, 1 CAP PO BID for UTI, only 1 day left for 7 Days, #14 Ref 0 (Reported) Entered as Reported by: HOWIE MCGRATH on 07/01/191406 Last Action: New Order on 07/01/191406 by HOWIE MCGRATH Ropinirole Hcl (Requip) 3 Mg Tablet, 3 MG PO DAILY for RLS, (Reported) Entered as Reported by: NESTOR RAMAN on 06/19/19822 Last Action: Discontinued on 07/01/191406 by JAMARI ELLISON MD Jul 03, 2019 13:39
[2019-07-03] MEDS: ACETAMINOPHEN 325 MG TABLET. PO PRN (14:23)
--- NOTE | 2019-07-03 15:24 | NUR ---
Discharge Note: GEORGE FINLEY Discharge instructions and discharge home medications reviewed with Patient and a copy given. All questions have been answered and understanding verbalized. The following instructions and handouts were given: discharge instructions, new prescription, education and follow up recommendations. Discontinued lines and drains: Peripheral IV discontinued intact. Patient discharged to Home or Self Care with Spouse via Wheelchair off unit by ALEXIA
[2019-07-08] MEDS ORDERED: APIXABAN 5 MG TABLET. PO SCH (09:00)
== END 2019-07-03 14:50 | disposition home or self-care (01) | DRG 301 ==
LOC: 5 SOUTH 12:50
PROVIDERS: ADMIT Internal Medicine; ATTEND Internal Medicine
DX: I82.401 Acute embolism and thrombosis of unspecified deep veins of right lower extremity (principal); I10 Essential (primary) hypertension; M06.9 Rheumatoid arthritis, unspecified; Z79.899 Other long term (current) drug therapy; Z82.49 Family history of ischemic heart disease and other diseases of the circulatory system; Z86.718 Personal history of other venous thrombosis and embolism; Z90.710 Acquired absence of both cervix and uterus; Z88.0 Allergy status to penicillin; Z88.2 Allergy status to sulfonamides; Z88.8 Allergy status to other drugs, medicaments and biological substances
CPT/HCPCS: 36415; 80048; 85025; 85610; 97116; G0378

== ENCOUNTER → 2019-07-01 | Outpatient (CLI) | payer BC ==
[2019-06-19 15:58] VITALS: BP 128/69
[~2019-07-01] MED LIST changes: +APIX5TAB PO; -BUPIVACAINE-EPI 0.25%-1:200000 MPF 30 ML VIAL. INJ ONE; -CLINDAMYCIN 900MG PREMIX 50 ML IV PRN; -ESTROGENS, CONJ VAGINAL CREAM 30GM TUBE. ONE; +GABA600T7 PO; +HYDR-2145 PO; +HYDR-3164 PO; -HYDROmorphone 2 MG/ML VIAL IV PRN; -IV RINGERS,LACTATED 1000ML 1,000 ML IV SCH; +LEVO137T3 PO; -LIDOCAINE 1% PF 2 ML VIAL. ID PRN; +MELO15TA6 PO; -MORPHINE SULFATE 2 MG/ML VIAL. IV PRN; +NITR100C62 PO; -ONDANSETRON PF 4 MG/2 ML VIAL. IV PRN; +POTA10TA6 PO; -PROCHLORPERAZINE 10 MG/2 ML VIAL. IV PRN; +ROPI0.25 PO; +ROPI3TAB PO; +TRAM-48 PO
--- NOTE | 2019-07-01 11:51 | RAD ---
RIGHT LEG VENOUS DOPPLER STUDY: Clinical indications: Right leg swelling and pain. Had recent surgery on June 19, 2019. Findings: Duplex sonography (including queen scale evaluation and color flow and waveform spectral analysis) of the proximal aspect of the greater saphenous vein and proximal aspect of the profunda femoral vein and the entire length of the common femoral and superficial femoral and popliteal veins and the tibioperoneal trunk and the proximal aspect of the posterior tibial and peroneal veins of the right leg was performed. Occlusive thrombosis is seen within the distal superficial femoral vein and popliteal vein and posterior tibial and peroneal veins. Impression: Occlusive DVT of the right lower extremity. Electronically signed by: Orlando Astudillo MD (07/01/2019 11:48 AM) [facility]
== END | disposition home or self-care (01) ==
LOC: US 10:58
PROVIDERS: ATTEND Nurse Practitioner Women's Health
DX: I82.491 Acute embolism and thrombosis of other specified deep vein of right lower extremity (principal); M79.89 Other specified soft tissue disorders
CPT/HCPCS: 93971